=== PATIENT | female | born 1970 | race Caucasian/White ===

== ENCOUNTER 2019-12-08 17:10 | Emergency (ER) | payer BC ==
[~2019-12-08] VITALS: Ht 167.6 cm; Wt 88.6 kg
[2019-12-08 17:31] VITALS: Ht 167.6 cm; Wt 88.6 kg
[2019-12-08] MEDS ORDERED: HYDROCODON-ACE1 EA10 PO (17:32)
[2019-12-08] MEDS ORDERED: LYRICA25 MG (17:33)
[2019-12-08] MEDS ORDERED: BISOPROLOL FUMAR5 MG PO (17:33)
[2019-12-08 18:26] LABS: BASOPHILS 0.1 % (0-2); EOSINOPHILS 0.2 % (0-7); HEMATOCRIT 43.4 % (36.0-48.0); HEMOGLOBIN 14.8 g/dL (12-16); IMMATURE GRANULOCYTES 0.3 % (0-5); LYMPHOCYTES 12.8 % (15-50); MCH 30.6 pg (26.0-34.0); MCHC 34.1 g/dL (31.0-37.0); MCV 89.7 fL (80.0-100.0); MEAN PLATELET VOLUME 9.6 fL (7.4-10.4); MONOCYTES 9.3 % (2-11); NEUTROPHILS 77.3 % (40-80); PLATELET COUNT 322 10x3/uL (130-400); RBC 4.84 10x6/uL (4.00-5.40); RDW 12.2 % (11.5-14.5); WBC 18.3 10x3/uL (4.8-10.8)
[2019-12-08 18:28] LABS: CALC OSMOLALITY 260 mosm/kg (275-300); CALCIUM 8.4 mg/dL (8.5-10.1); CARBON DIOXIDE 26.4 mmol/L (21.0-32.0); CHLORIDE - SERUM 97 mmol/L (98-107); CREATININE - SERUM 0.6 mg/dL (0.6-1.3); GLUCOSE 129 mg/dL (74-106); POTASSIUM - SERUM 3.2 mmol/L (3.5-5.1); SODIUM 130 mmol/L (136-145); UREA NITROGEN 8 mg/dL (7-18); eGFR NON AFRICAN AMERICAN > 90 mL/min (90-120)
[2019-12-08 18:31] LABS: BACTERIA FEW /HPF (NONE SEEN); BILIRUBIN NEGATIVE (NEGATIVE); EPITHELIAL CELLS 0-5 /hpf (0-5); KETONE NEGATIVE (NEGATIVE); NITRITE NEGATIVE (NEGATIVE); UROBILINOGEN NORMAL mg/dL (< 2); WHITE CELLS - URINE OCC HPF (0-4)
[2019-12-08 18:51] LABS: ALBUMIN 3.6 g/dL (3.4-5.0); ALKALINE PHOSPHATASE 76 U/L (30-120); ALT (SGPT) 27 U/L (10-68); AMYLASE - SERUM 18 U/L (25-115); BILIRUBIN - TOTAL 0.49 mg/dL (0.2-1.3); LIPASE 376 U/L (73-393); MAGNESIUM - SERUM 2.3 mg/dL (1.8-2.4); PROTEIN - SERUM 6.9 g/dL (6.4-8.2)
[2019-12-08 18:55] LABS: TROPONIN-I 0.139 ng/mL (0.000-0.060)
[2019-12-08 20:32] VITALS: BP 145/87
== END 2019-12-08 20:45 | disposition other institution (70) ==
LOC: D.ER 17:10
PROVIDERS: Family Medicine
DX: I60.9 Nontraumatic subarachnoid hemorrhage, unspecified (principal); E86.0 Dehydration; R79.89 Other specified abnormal findings of blood chemistry; E83.51 Hypocalcemia; E87.6 Hypokalemia; E87.1 Hypo-osmolality and hyponatremia; D72.829 Elevated white blood cell count, unspecified; R56.9 Unspecified convulsions; R73.9 Hyperglycemia, unspecified; I10 Essential (primary) hypertension; Z72.0 Tobacco use; R11.2 Nausea with vomiting, unspecified